=== PATIENT | female | born 1985 | race Caucasian/White ===

== ENCOUNTER 2021-07-07 06:06 | Inpatient (IN) | payer OTHER, MEDICAID, SELFPAY ==
[2021-07-07] VITALS (143 sets, daily range): BP systolic 73–153; BP diastolic 36–104; PULSE 26–198; RESP 16–18; TEMP 36.3–37.3; O2SAT 90–100; BMI 42.1
--- NOTE | 2021-07-07 06:06 | LDADM ---
This patient, Enid Carlos, was admitted to Labor/Delivery/Recovery 102 on 07/07/21 at 06:06. Plans for labor, pain management and were discussed with patient. Patient/family oriented to hospital policies and general routines including ID bracelet, bed and alarms, visiting hours, pain management, procedures, bathroom and other care routines, personal items, smoking policy, room service/diet and guest tray routines, security routines, and visiting hours. Patient/Family are encouraged to report perceived risks to care and to ask questions if they do not understand what they are told or what they should do. See OBIX for further documentation.
--- OUTSIDE RECORDS SUMMARY | 2021-07-07 06:14 | XMS_ITS ---
:1985 Author Care Team Providers Name Role Phone GILA PALMER Primary Care Provider [phone] Allergies Code Code System Name Reaction Severity Status Onset NKDA ? Medications Name Status Start Date Stop Date ? ? amoxicillin 500 mg capsule Completed ? 08/20 clomiphene citrate 50 mg tablet Completed ? 11/26/2020 TAKE 2 TABLETS BY MOUTH ONCE DAILY FOR 5 DAYS doxycycline hyclate 100 mg capsule Completed ? 08/21/2019 escitalopram 10 mg tablet Completed ? 2020 TAKE 1 TABLET BY MOUTH ONCE DAILY Estarylla 0.25 mg-35 mcg tablet Completed ? 08/21/2019 Fish Oil 360 mg-1,200 mg capsule Completed ? 09/06/2011 fluconazole 150 mg tablet Completed ? 2020 letrozole 2.5 mg tablet Completed ? 11/27/19 21 TAKE 2 TABLETS BY MOUTH ON DAYS 3 7 OF CYCLE Macrobid 100 mg capsule Completed 08/11/2011 09/06/19 12 take 1 capsule (100MG) by oral route every 12 hours with food metformin 500 mg tablet Completed ? 01/24/20 21 Metrogel Vaginal 0.75 % Completed 06/25/2015 12/05/19 16 insert 1 applicatorful by vaginal route every day at bedtime Vitamin Active ? Not available progesterone micronized 200 mg capsule Completed ? 11/26/2020 spironolactone 25 mg tablet Completed ? 07/15 take 1 tablet by oral route every day Triveen-Duo DHA 29 mg-1 mg-400 mg oral pack Completed 11/1501/03/2016 take 1 by Oral route once for 30 days valacyclovir 500 mg tablet Active ? Not a vailable FEATURES EDITOR-PNV-DHA 28 mg iron-1 mg-200 mg capsule Completed 201803/19/2020 take 1 capsule by oral route every day Zofran 4 mg tablet Completed 0
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
--- OUTSIDE RECORDS SUMMARY | 2021-07-07 06:15 | XMS_ITS | Encounter Summary ---
:1985 Author Care Team Providers Name Role Phone Mehrdad Fernandez Primary Care Provider [phone] Reason for Visit OB visit Assessment and Plan 1. Routine care ? drug screen, urine Discussion Note: None recorded.Patient educational handouts: No information available. Plan of Care Reminders Provider Appointments Induction 07/10/2021 6:00AM Mulugeta Rogel MD Lab Drug Screen, Urine 06/15/2021 [place] Referral None recorded. ? ? Procedures None recorded. ? ? Surgeries None recorded. ? ? Imaging None recorded. ? ? Medications Name Start Date ? ? Vitamin ? valacyclovir 500 mg tablet ? TAKE 1 TABLET DAILY Medications Administered None recorded. Vitals Height Weight BMI Blood Pressure 5 ft 3.25 in 243 lbs 42.7 kg/m2 116/74 mm[Hg] Results Lab Results Date Name Specimen Result Interpretation Description Value Range Status Address ? 06/15/2021 Drug Screen, Urine ? Amphetamines: negative ? ? [place]: Urine [address] [place] ? ? Urine ? Cannabinoids: negative ? ? [place]: [address] [place] ? ? Urine ? Opiates: negative ? ? [place]: [address]
[2021-07-07 07:31] LABS: Basophils Percent Auto 0.1 % (0.2-1.2); Eosinophils Percent Auto 0.2 % (0-4.4); Hematocrit 36.2 % (37.0-47.0); Hemoglobin 12.4 g/dL (12.0-15.0); Immature Granulocyte Absolute 0.03 K/mm3 (0.00-0.031); Immature Granulocyte Percent A 0.4 % (0-0.5); Lymphocytes Absolute Auto 0.61 K/mm3 (0.9-3.2); Lymphocytes Percent Auto 7.5 % (18.3-44.2); Mean Corpuscular HGB Conc 34.3 g/dl (32-36); Mean Corpuscular Hemoglobin 28.1 pg (26-34); Mean Corpuscular Volume 82.1 fl (80-100); Mean Platelet Volume 10.7 fl (7.4-10.4); Monocytes Absolute Auto 0.5 K/mm3 (0.1-0.6); Monocytes Percent Auto 5.5 % (2.6-8.5); Neutrophils Percent Auto 86.3 % (45.5-73.1); Platelet Count Result 216 k/mm3 (150-375); Red Blood Count 4.41 M/mm3 (4.2-5.4); Red Cell Distribution Width 13.5 % (11.5-14.5); White Blood Count 8.2 K/mm3 (4.5-10.0)
[2021-07-07] MEDS: LACTATED RINGERS 1,000 ML 999 ML IV CONT (07:34)
--- NOTE | 2021-07-07 08:21 | WPDHPUPDATE1 ---
History and Physical Update Update Date/Time: 07/07/21 08:21 History and Physical has been reviewed, including an updated exam of the patient. There are NO changes in the patient's condition. Risks, benefits, and alternatives have been discussed and questions answered. Patient agrees to proceed with procedure. This patient is a 35-year-old multiparous female with a previous delivery. She is at 40 weeks and 3 days gestation. We have agreed to a trial of labor after . She came in in spontaneous labor. She is current 4 cm and 70% effaced with a -2 station. IUPC and scalp electrode were placed. She had some nonspecific mild deceleration is a upon admission but that has resolved at this time and the status is very reassuring. to continue observation may add small amounts Pitocin to augment labor.
[2021-07-07] MEDS: LACTATED RINGERS 1,000 ML 125 ML IV CONT ×3 (08:43→12:10)
--- NOTE | 2021-07-07 09:02 | WPDANESEPP ---
Anes - Eval Pre Procedure Procedure: Labor Epidural Date/Time: 07/07/21 09:02 Surgeon: Juan F Preop Diagnosis: Labor Pain Pre Op Diagnosis: Labor Patient Data Age: 35 Gender: F Height: 1.6 m Weight: 108 kg Last Vital Signs Pulse 67 07/07/21 08:31 BP 115/77 07/07/21 08:31 O2 Del Method Room Air 07/07/21 07:36 Allergies Allergy/AdvReac Type Severity Reaction Status Date / Time No Known Allergies Allergy Unverified 06/26/16 14:34 Home Medications Medication Instructions Recorded Confirmed Type iron,carbonyl 30 mg-vitamin C 10 1 tablet PO DAILY 07/07/21 07/07/21 History mg-FOS 25 mg chewable tablet (Chewable Iron) vits no.126-ferrous fum 1 tablet PO DAILY 07/07/21 07/07/21 History 28 mg iron-folic acid 800 mcg tablet (Classic ) valacyclovir 500 mg tablet 1 tablet PO DAILY 07/07/21 07/07/21 History Laboratory Tests 07/07/21 07/07/21 07:24 07:24 WBC 8.2 K/mm3 K/mm3 (4.5-10.0) RBC 4.41 M/mm3 M/mm3 (4.2-5.4) Hgb 12.4 g/dL g/dL (12.0-15.0) Hct 36.2 % L % (37.0-47.0) MCV 82.1 fl fl (80-100) MCH 28.1 pg pg (26-34) MCHC 34.3 g/dl g/dl (32-36) RDW 13.5 % % (11.5-14.5) Plt Count 216 k/mm3 k/mm3 (150-375) MPV 10.7 fl H fl (7.4-10.4) Immature Gran % (Auto) 0.4 % % (0-0.5) Neut % (Auto) 86.3 % H % (45.5-73.1) Lymph % (Auto) 7.5 % L % (18.3-44.2) Posey % (Auto) 5.5 % % (2.6-8.5) Eos % (Auto) 0.2 % % (0-4.4) Baso % (Auto) 0.1 % L % (0.2-1.2) Lymph # (Auto) 0.61 K/mm3 L K/mm3 (0.9-3.2) Posey # (Auto) 0.5 K/mm3 K/mm3 (0.1-0.6) Eos # (Auto) 0.0 K/mm3 K/mm3 (0-0.3) Baso # (Auto) 0.0 K/mm3 K/mm3 (0.0-0.1) Abs Immat Gran (auto) 0.03 K/mm3 K/mm3 (0.00-0.031) Absolute Neuts (auto) 7.0 K/mm3 H K/mm3 (1.3-6.7) Absolute Nucleated RBC 0.0 K/mm3 K/mm3 (0.0-0.012) Nucleated RBC % 0.0 % % (0.0-0.2) RPR Pending Patient hx anesthesia problems: none Family hx anesthesia problems: none Results Review: All pre-operative results and documents have been reviewed as part of the pre-operative evaluation. [facility] Social History Social History Smoking status: Never smoker Second hand tobacco smoke exposure: No Substance use: never Spiritual care concerns: No Exam Day of Procedure 07/07/21 09:02 Patient weight: normal Heart: regular rate and rhythm Lungs: normal air movement Airway: Mallampati scale class II Neurological: alert and oriented
[2021-07-07] MEDS: OXYTOCIN 30 UNITS/NS 500 ML 30 UNITS/500 ML BAG IV CONT (10:09)
--- NOTE | 2021-07-07 15:04 | PM.OBPRVD ---
OB - Delivery Note Procedure Delivery date: 07/07/21 Procedure: Vaginal delivery Events: Previous Delivery Induction method: None Delivery augmentation: Rupture of Membranes and Pitocin Delivery monitor: External FHT, External Uterine, Internal FHT and Internal Uterine Route of delivery: Laceration Description: None Specimen: No Quantitative Blood Loss (ml): 105 Anesthesia type: Epidural Disposition: Floor [place] Baby Date of : 07/07/21 Time of : 14:49 Weeks of gestation at delivery: 40 gender: Female Weight (pounds): 7 Weight (ounces): 8 presentation: vertex position: Right Occiput Anterior Placenta delivery description: Spontaneous Cord Vessel Description: 3 Vessels score one minute: 8 score five minutes: 9 Narrative: Mom and baby skin to skin in stable condition.
[2021-07-07] MEDS: OXYTOCIN 30 UNITS/NS 500 ML 30 UNITS/500 ML BAG 125 UNITS IV CONT (15:23)
[2021-07-07] MEDS: LOPERAMIDE HCL 2 MG CAPSULE (15:39)
--- NOTE | 2021-07-07 17:30 | PC.NURSE ---
Patient transferred to post room #288 via wheelchair. Support person present. Oriented to unit, room, information board, rooming in, admission packet and security measures. Patient verbalizes understanding.
[2021-07-07] MEDS: IBUPROFEN 600 MG TABLET PO (18:16)
[2021-07-08 04:20] VITALS: BP 106/50; PULSE 61; RESP 16; TEMP 36.4
[2021-07-08] MEDS: LOPERAMIDE HCL 2 MG CAPSULE PO ×4 (04:24→14:08)
[2021-07-08] MEDS: IBUPROFEN 600 MG TABLET PO (04:25)
[2021-07-08 05:09] LABS: Hematocrit 33.6 % (37.0-47.0); Hemoglobin 11.1 g/dL (12.0-15.0)
--- NOTE | 2021-07-08 07:18 | PM.OBPNVD ---
OB - PN: Subj Subjective Date/time seen: 07/08/21 07:18 OB - PN: Obj Data Labs CBC & Chem 7: 07/08/21 04:22 Labs: Laboratory Results - last 24 hr 07/07/21 07/07/21 07/08/21 07:24 07:59 04:22 WBC 8.2 RBC 4.41 Hgb 12.4 11.1 L Hct 36.2 L 33.6 L MCV 82.1 MCH 28.1 MCHC 34.3 RDW 13.5 Plt Count 216 MPV 10.7 H Immature Gran % (Auto) 0.4 Neut % (Auto) 86.3 H Lymph % (Auto) 7.5 L [place] % (Auto) 5.5 Eos % (Auto) 0.2 Baso % (Auto) 0.1 L Lymph # (Auto) 0.61 L [place] # (Auto) 0.5 Eos # (Auto) 0.0 Baso # (Auto) 0.0 Abs Immat Gran (auto) 0.03 Absolute Neuts (auto) 7.0 H Absolute Nucleated RBC 0.0 Nucleated RBC % 0.0 Blood Type B Positive Antibody Screen Negative OB - PN A/P Plan day: 1 Plan: discharge home Time Spent With Patient Time: Total time spent is greater than 50% in coordination of care (as documented) at patient's floor/unit and/or counseling patient: Review of Systems Review of Systems: All systems reviewed & are unremarkable except as noted in HPI and below Exam Const: General: cooperative, healthy appearing and comfortable
--- NOTE | 2021-07-08 07:19 | PM.OBDSVD ---
DS: Admitting Diagnosis Discharge Date 07/08/21 Admitting Diagnosis Labor, TOLAC OB - DS: Summary OB Procedures : None OB Procedures Intrapartum: OB Procedures: : None Time Spent with Patient Time attestation: Total time spent providing and/or coordinating discharge services: DS: Data Data Completed and Pending Labs on day of discharge: Labs from last 24 hours 07/08/21 07/07/21 07/07/21 04:22 07:59 07:24 WBC RBC Hgb 11.1 L Hct 33.6 L MCV MCH MCHC RDW Plt Count MPV Immature Gran % (Auto) Neut % (Auto) Lymph % (Auto) [place] % (Auto) Eos % (Auto) Baso % (Auto) Lymph # (Auto) [place] # (Auto) Eos # (Auto) Baso # (Auto) Abs Immat Gran (auto) Absolute Neuts (auto) Absolute Nucleated RBC Nucleated RBC % RPR Pending Blood Type B Positive Antibody Screen Negative 07/07/21 07:24 WBC 8.2 RBC 4.41 Hgb 12.4 Hct 36.2 L MCV 82.1 MCH 28.1 MCHC 34.3 RDW 13.5 Plt Count 216 MPV 10.7 H Immature Gran % (Auto) 0.4 Neut % (Auto) 86.3 H Lymph % (Auto) 7.5 L [place] % (Auto) 5.5 Eos % (Auto) 0.2 Baso % (Auto) 0.1 L Lymph # (Auto) 0.61 L [place] # (Auto) 0.5 Eos # (Auto) 0.0 Baso # (Auto) 0.0 Abs Immat Gran (auto) 0.03 Absolute Neuts (auto) 7.0 H Absolute Nucleated RBC 0.0 Nucleated RBC % 0.0 RPR Blood Type Antibody Screen Discharge Plan Discharge Attending physician on discharge: Ester Hall Discharging Clinician: Ester Hall Anticipated Discharge Date/Time: 07/08/21 07:20 Patient Disposition: Home, Self-Care Activity: pelvic rest Diet: regular Discharge Instructions: Follow up in 4 weeks. Patient Instructions: Antibiotic Form Stand Alone Forms: General Discharge Information Follow-up/Referrals: Ester Hall CNM [Certified Nurse [employer]] - (4 weeks) Discharge Medications: Continued valacyclovir 500 mg tablet 1 tablet PO DAILY Classic 28 mg iron- 800 mcg Tablet 1 tablet PO DAILY Discontinued Chewable Iron 30-10-25 mg Tablet,Chewable 1 tablet PO DAILY Date of admission: 07/07/21 06:06 Primary Care Provider: ,Mehrdad Bauer Admitting Provider: John Rogel Attending physician on admission: John Rogel Condition: Stable
[2021-07-08 07:55] VITALS: BP 85/48; PULSE 66; RESP 16; TEMP 36.4; O2SAT 99
--- NOTE | 2021-07-08 07:58 | WPDANLDPN2 ---
Anes-Prog Note L&D Date/Time: 07/08/21 07:59 Comfortable throughout: labor Neuraxial method: epidural Epidural/Spinal procedure site: clean & non-tender Neuro status: Neuro function grossly intact. Cardiovascular status: normal Respiratory status: normal Airway patency: baseline Mental status: baseline Post-Op hydration status: normal Vital Signs: Last Vital Signs Temp 97.6 F 07/08/21 04:20 Pulse 61 07/08/21 04:20 Resp 16 07/08/21 04:20 BP 106/50 L 07/08/21 04:20 Pulse Ox 100 07/07/21 16:31 O2 Del Method Room Air 07/07/21 19:15 Pain score (VAS): 2/10 I/O: Intake & Output 07/07/21 07/07/21 07/08/21 15:59 23:59 07:59 Intake Total 1999 500 Output Total 147 Balance 1999 353 Patient feedback: Patient satisfied with anesthetic care.
[2021-07-08] MEDS: TETANUS,DIPHTHERIA,AC PERTUSSIS ADULT (0.5 ML) BOOSTRIX IM (10:10)
[2021-07-08] MEDS: valACYclovir HCL 500 MG TABLET PO (10:10)
[2021-07-08] MEDS: MULTIVIT/MIN/PREN/FOL AC/IRON TABLET 1 TAB PO (10:10)
[2021-07-08 12:25] VITALS: BP 97/58; PULSE 67; RESP 16; TEMP 36.8; O2SAT 99
[2021-07-08 14:32] LABS: Rapid Plasma Reagin Non-Reactive (NonReactive)
--- NOTE | 2021-07-08 15:41 | PC.NURSE ---
[id number] Mother led the conversation with her experience and plan to feed her so far and her ability to independently latch optimally without discomfort. Mother's preference is to pump. She latched to the right breast with football positioning. Infant latched sub-optimal and was detached. RN assisted mother with to the left breast using football positioning. Mother was educated on visualizing the effective suck/swallow ratios. Reminded parents to use good handwashing technique to prevent infection. Mother is feeding appropriately for growth of infant and understands stimulating infant to eat if needed. Infant has had appropriate feedings in the last 24 hours meets the outcomes for weight, output and jaundice at this time. Mother states she is confident to continue effectively and pump as needed her infant at home or when to call for assistance and denies any additional assistance or education at this time. Reinforced understanding of milk production, transition of milk, signs of adequate intake, prevention/relief of engorgement, responsive after visualizing feeding cues, the different methods of stimulating to breastfeed 2-3 hours after the start of the last feeding, community resources, medication information reviewed per [employer] and when to call a provider using the resource of the mom and baby guide/[facility] website. Mother mentioned working with a nurse at Dr. Rogel's office and has her for an outpatient resource. Mother voiced understanding of the education shared. Reported to the primary RN.
[2021-07-10 10:01] VITALS: BP 109/67; PULSE 58; RESP 20; TEMP 36.6; O2SAT 99
== END 2021-07-08 17:37 | disposition home or self-care (01) | DRG 807 ==
LOC: ANHLDR 06:30 → ANHOB2 17:33
PROVIDERS: Advanced Practice Midwife; Admitting Provider Obstetrics & Gynecology; PCP Internal Medicine; Visit Provider Obstetrics & Gynecology
DX: O34.219 Maternal care for unspecified type scar from previous cesarean delivery (principal); Z37.0 Single live birth; O76 Abnormality in fetal heart rate and rhythm complicating labor and delivery; Z3A.40 40 weeks gestation of pregnancy
CPT/HCPCS: 36415; 84112; 85014; 85018; 85025; 86592; 86850; 86900; 86901; 90715; A9270; J2590; J2795; J7120